=== PATIENT | male | born 1970 | race Caucasian/White ===

== ENCOUNTER → 2018-01-20 14:25 | Outpatient (CLI) | payer OTHER, SELFPAY ==
--- NOTE | 2018-01-20 14:33 | CA_ITS ---
PROCEDURE: 2-D M-mode and color Doppler study INDICATIONS FOR THE TEST: Chest pain COPD Heart Murmur Tobacco Smoking+ Palpitations Fatigue Syncope Edema Hypertension+Diabetes Mellitus+ Rheumatic Fever SOB VANN Obesity Hyperlipidemia+ Family History HD Additional History STENTS, CAD PATIENT INFORMATION HEIGHT: 69 WEIGHT:184 GENDER: Male B/P:130/71 2-D/M-MODE INTERPRETATION: 2-D MEASUREMENTS OBSERVED VALUES IN CMS Right Ventricular Dimension (RVDd) 2.4 Interventricular Septum (Thickness)(IVsd) 1.4 Left Ventricular Internal Dimensions(LVIDd) 4.7 Left Ventricular Posterior Wall (Thickness)(LVPWd) 0.9 Aortic Root 2.7 Aortic Cusp Separation 1.5 Left Atrial Dimensions (LAD) 4.2 2D 1. Left atrium is mildly enlarged, left ventricle is normal size, mild concentric left ventricular hypertrophy, visually estimated ejection fraction 55% with no obvious regional wall motion abnormality. 2. The right atrium and right ventricle are normal size and contractility. 3. The aortic valve is minimally thickened and fibrosed there is restriction the leaflet mobility. 4. The mitral and tricuspid valve leaflets are minimally thickened. 5. The pulmonic valve is poorly visualized. 6. No significant pericardial effusion noted. DOPPLER INTERROGATION: Doppler interrogation of the aortic, mitral and tricuspid valvular presence of mild mitral and tricuspid regurgitation, tricuspid regurgitant jet velocity is insufficient for calculation of the right ventricular systolic pressure, mean gradient across aortic valve is 16 mmHg, represents mild aortic stenosis, there is no significant aortic insufficiency present. Diastolic parameters are inconclusive. CONCLUSION: 1. Mildly enlarged left atrium, normal left ventricular size, mild concentric left ventricular hypertrophy, visually estimated ejection fraction 55% with no obvious regional wall motion abnormality, diastolic parameters are inconclusive. 2. Thickened and calcified aortic valve mean gradient across valve of 16 mmHg represents mild aortic stenosis, there is no aortic insufficiency. 3. Mild mitral and tricuspid regurgitation 4. No significant pericardial effusion noted.
--- NOTE | 2018-01-20 14:33 | CI_ITS ---
Cerebrovascular Exam Indications: 785.9 Bruit. 433.10 Occlusion/stenosis of carotid artery without cerebral infarction. IMPRESSIONS 1. The bilateral vertebral arteries are patent with normal antegrade flow. 2. Study suggests 50-69% stenosis involving the right internal carotid artery. 3. Study suggests 70-99% stenosis involving the left internal carotid artery. Disease progression from the study of 26-Nov-2014. History: Coronary artery disease. Risk factors: Current tobacco use. Hypertension. Diabetes mellitus. Hyperlipidemia. Carotid duplex study. Complete study and Doppler flow study including spectral analysis, color and flanagan scale imaging. Height: Height: 175.3cm. Height: 69in. Weight: Weight: 83.5kg. Weight: 183.6lb. Body mass index: BMI: 27.2kg/m^2. Body surface area: BSA: 2.03m^2. Location: Vascular laboratory. Patient status: Outpatient. CRITICAL FINDINGS - Reported to: [facility] - Read back and verified. - 01/20/18 - 1516 - 70-99% FINDING Tables: Arterial flow: + +--------+--------+ Location V sys V ed + +--------+--------+ Right CCA - proximal 99.8cm/s 28.3cm/s + +--------+--------+ Right CCA - distal 86.4cm/s 18.9cm/s + +--------+--------+ Right ECA 299cm/s -------- + +--------+--------+ Right ICA - proximal 99.8cm/s 34.6cm/s + +--------+--------+ Right ICA - mid 142cm/s 61.3cm/s + +--------+--------+ Right ICA - distal 142cm/s 57.4cm/s + +--------+--------+ Right vertebral 89.3cm/s -------- + +--------+--------+ Left CCA - proximal 116cm/s 35.2cm/s + +--------+--------+ Left CCA - distal 107cm/s 30.2cm/s + +--------+--------+ Left ECA 259cm/s -------- + +--------+--------+ Left ICA - proximal 393cm/s 177cm/s + +--------+--------+ Left ICA - mid 340cm/s 124cm/s + +--------+--------+ Left ICA - distal 129cm/s 46.3cm/s + +--------+--------+ Left vertebral 99.6cm/s -------- + +--------+--------+ Velocity ratios: + + + + + + Right, V sys Right, V ed Left, V sys Left, V ed + + + + + + Max ICA/dist CCA 1.64 3.24 3.67 5.86 + + + + + + (Report amended ) Electronically signed by: Curt Sutherland [id number]
== END ==
PROVIDERS: Family Provider Internal Medicine; Visit Provider Family Medicine
DX: I25.10 Atherosclerotic heart disease of native coronary artery without angina pectoris (principal); I65.23 Occlusion and stenosis of bilateral carotid arteries
CPT/HCPCS: 93306; 93880

== ENCOUNTER → 2018-02-14 07:53 | Outpatient (CLI) | payer OTHER, SELFPAY ==
--- NOTE | 2018-02-14 07:56 | CT_ITS ---
CT lung screening EXAM: CT LUNG LOW DOSE WO CONTRAST HISTORY: Asymptomatic with 30 pack-year smoking history ITS.REASON: NICOTINE DEPENDENCE ORDERING PHYSICIAN: Cynthia Mg MD PATIENT AGE: 47 years COMPARISON: None TECHNIQUE: The exam was performed on a GE Light Speed [address] scanner using 2.90 mGy CTDI. A low dose helical CT CHEST was performed on a multi-detector scanner. All CT scans at the facility use one or more dose reduction, viz: automated exposure control; ma/kV adjustment per patient size (including targeted exams where dose is matched to indication; i.e. head); or iterative reconstruction technique. The LDCT was performed in a facility that meets the criteria for the screening program. Data regarding this exam was submitted to ACR which is an approved registry. The order for this exam indicates that it came as a result of a lung cancer screening counseling shard decision-making visit that included all the elements required of such a visit including smoking cessation. The radiologist interpreting this exam meets the CMS criteria for the LDCT lung cancer screening program. The exam is reported using the Lung-RADS classification scale and reported to the ACR registry. NOTE: This study was performed for the specific purposes of lung cancer screening and is not an alternative to diagnostic chest CT. RADIATION DOSE: CTDI vol(CT dose Index-volume) = 2.90mG DLP (Dose Length Product) = 108.26 mGcm FINDINGS: There is a diffuse reticulonodular pattern of the lungs. There are scattered noncalcified groundglass opacities largest of which is approximately 6 mm in the left upper lobe. 6 mm perifissural nodule is present on the left. No effusions. There are mildly prominent lymph nodes in the mediastinum measuring up to 17 x 12 mm. Calcified node is present in the precarinal region and there is a calcified granuloma in the right lower lobe. Small nodes are present in the axilla. There are coronary artery calcifications. IMPRESSION: 1. Lung RADS Category: 3, probably benign 2. Other findings: Reticulonodular pattern with groundglass opacities possibly related to smoking-related lung disease. Inflammatory or infectious process also considered. Old granulomatous disease. Coronary artery disease. Mild mediastinal adenopathy RECOMMENDATIONS: [address] without and with contrast
== END ==
PROVIDERS: Family Provider Internal Medicine; PCP Family Medicine; Visit Provider Family Medicine
DX: Z87.891 Personal history of nicotine dependence (principal); Z72.0 Tobacco use; Z12.2 Encounter for screening for malignant neoplasm of respiratory organs

== ENCOUNTER → 2021-03-13 13:16 | Outpatient (CLI) | payer OTHER, SELFPAY ==
--- NOTE | 2021-03-13 13:22 | CA_ITS ---
APPROVED REPORT Deli Clerk: Bhavana Carlos RVT Laterality: Bilateral Study Quality: Good Indications: KUMAR,S/P STENTING LT CARTOID Risk Factors Hypertension: Hyperlipidemia Smoking Surgery/Intervention Carotid Stent: left Doppler Spectral Velocity Analysis ECA (R) 201.10/14.10 cm/s ECA (L) 144.80/21.80 cm/s dICA (R) 102.70/33.10 cm/s dICA (L) 57.70/23.10 cm/s Jose De Jesus (R) 95.20/33.10 cm/s Jose De Jesus (L) 64.10/23.10 cm/s pICA (R) 79.10/21.40 cm/s pICA (L) 83.30/17.90 cm/s dCCA (R) 87.70/17.10 cm/s dCCA (L) 66.60/20.50 cm/s pCCA (R) 120.80/15.00 cm/s pCCA (L) 82.00/24.30 cm/s Vert (R) 71.70/16.70 cm/s Vert (L) 89.70/19.20 cm/s ICA/CCA 1.17 ICA/CCA 1.25 Findings Study suggests 20-49% stenosis of the right internal cartoid artery. Study suggests less than 20% stenosis of the left internal cartoid artery. Antegrade flow seen bilateral vertebral arteries. Conclusion Study suggests 20-49% stenosis of the right internal cartoid artery. Study suggests less than 20% stenosis of the left internal cartoid artery. Antegrade flow seen bilateral vertebral arteries. Electronically signed by : Curt Sutherland MD 03/13/2021 15:08:07
== END ==
PROVIDERS: PCP Family Medicine; Visit Provider Family Medicine
DX: I65.23 Occlusion and stenosis of bilateral carotid arteries (principal)
CPT/HCPCS: 93880

== ENCOUNTER 2025-01-01 13:59 | Outpatient (CLI) | payer BC, SELFPAY ==
--- NOTE | 2025-01-01 | CA_ITS ---
APPROVED REPORT EXAM: Comprehensive 2D, Doppler, and color-flow Echocardiogram Check Grader: Joanie Valdez, RCS, RVS Ht: 5 ft 9 in Wt: 172lbs BSA: 1.94 BP: 120/80 mmHg Indications: [id number], DM, HTN, HLD, EX-smoker 2D Dimensions Aortic Root 2.62 cm LA Volume 65.60 mL Left Atrium 4.46 cm LA Volume Index 33.343448 mL/m2 (M/F) 16-34 RVID Base (AP4) 3.82 cm (M/F) 2.5-4.1 EF AP4 57.00 % LVOT 2.05 cm (M/F) 1.5-2.5 GL Strain -24.1 % M-Mode Dimensions RVDd 2.31 cm (0.9-2.6) LVDd 5.10 cm (3.5-5.7) Ao Diam 2.93 cm (2.0-3.7) LVDs 3.49 cm (3.5-5.7) IVSd 0.87 cm (0.6-1.1) PWd 0.84 cm (0.6-1.1) EF (Teich) 59.20% EPSs 0.20 cm FS 31.60% EDV (Teich) 123.80 mL TAPSE 1.70 (<1.7) ESV (Teich) 50.50 mL LV Diastology E Decel Time 233 (160-240 msec) E/A Ratio 1.54 MED E' 5.9 (>= 7 cm/sec) MED A' 11.60 cm/s E'/MED E' Ratio 14.41 (<= 14) LAT E' 16.9 (>= 10 cm/sec) LAT A' 11.20 cm/s E/LAT E' Ratio 5.03 (<= 14) Aortic Valve LVOT Max 122.0 (70-110 cm/s) MANUELITO Index 0.60 cm2/m2 LVOT VTI 20.57 cm AoV Peak Ld. 284.0 (50-130 cm/s) AO Peak GR. 34.50 mmHg AO Mean GR. 15.30 (<5 mmHg) AO VTI 58.6 (18-25 cm) MANUELITO (VTI) 1.16 (2.5-4.5 cm2) Mitral Valve MV E Max Ld. 85.0 (40-130 cm/s) MV A Velocity 55.0 (40-130 cm/s) E/A Ratio 1.54 MV Decel. Time 233 (160-240 ms) Tricuspid Valve TR P. Velocity 295.00 cm/s RAP Estimate 10.00 mmHg RVSP 44.80 mmHg Left Ventricle The left ventricle is normal size. The left ventricular systolic function is normal. The left ventricular ejection fraction is within the normal range. There is increased LV wall thickness. There is normal LV segmental wall motion. The left ventricular diastolic function is normal. LVEF is 55%. Right Ventricle Right ventricle is mildly dilated. Right ventricle is mildly hypokinetic. Atria The left atrium is mildly dilated. Right atrium is mildly dilated. There is no Doppler evidence of interatrial shunt. Aortic Valve The aortic valve is mildly thickened. Mild to moderate aortic stenosis is present. MANUELITO by continuity equation is 1.5 cm???. Peak velocity 2.9 m/s. Mean AV gradient 16 mmHg. Max AV gradient 37 mmHg. Mild aortic regurgitation. Mitral Valve The mitral valve leaflets are mildly thickened. No evidence of mitral valve stenosis. Mild mitral regurgitation. Tricuspid Valve Tricuspid valve is grossly normal in structure and function. Mild tricuspid regurgitation. RVSP is 30-35 mmHg. Pulmonic Valve The pulmonary valve is normal in structure. Trace pulmonic regurgitation. Great Vessels The aortic root is normal in size. IVC is normal in size and collapses >50% with inspiration. Pericardium There is no pericardial effusion. Other Information Study Quality: Fair Conclusion Normal LV systolic function. Mild RV dilation with mild reduction in RV function. Mild biatrial dilation. Mild to moderate (MANUELITO by continuity equation is 1.5 cm???. Peak velocity 2.9 m/s. Mean AV gradient 16 mmHg. Max AV gradient 37 mmHg). Mild AI, mild MR, mild TR. Electronically signed by : Merissa Galarza MD 01/01/2025 20:55:46
--- NOTE | 2025-01-01 14:51 | CT_ITS ---
FINAL REPORT TECHNIQUE: Thin section axial images were obtained from the lung apices to the upper abdomen by computed tomography. Reformatted images were obtained and reviewed. This study was performed with techniques to keep radiation doses al low as reasonably achievable (ALARA). Individualized dose reduction techniques using automated exposure control or adjustment of mA and/or kV according to the patient's size were employed. CLINICAL HISTORY: former smoker, quit 6 years ago, 1.5 ppd hx CAD COMPARISON: None FINDINGS: CHEST CT LOW DOSE 54-year-old male, quit smoking 6 years ago, approximately 50% pack-year history CTDI vol (mGy): 2.90 DLP (mGy-cm): 96.38 There is no axillary adenopathy. There is no mediastinal or hilar mass or adenopathy. The heart is normal in size. There is no pericardial or pleural effusion. Lung window images demonstrate a nodule in the left major fissure, measuring 4 mm in size, and best seen on image #38 of series 4. No other focal nodules are identified. Limited images of the upper abdomen are unremarkable. IMPRESSION: Lung-RADS category 2. Recommend 12 month follow up low dose chest CT. Reviewed, Interpreted and Dictated by Shaun Olvera MD Transcribed by Neela Joyce Authenticated and [facility]
== END 2025-01-01 23:59 | disposition home or self-care (01) ==
LOC: RT 14:00
PROVIDERS: PCP Family Medicine; Visit Provider Family Medicine
DX: I51.7 Cardiomegaly (principal); F17.201 Nicotine dependence, unspecified, in remission
CPT/HCPCS: 71271; 93306

== ENCOUNTER 2025-07-11 10:47 | Day surgery (SDC) | payer BC, SELFPAY ==
[2025-07-05 16:13] VITALS: BMI 26.6
--- NOTE | 2025-07-10 07:23 | EXP.HP ---
History of Present Illness *Admission Date: 07/11/25 *History of present illness: Mr. Baer is a 55-year-old gentleman who is here for screening colonoscopy secondary to a positive Cologuard test. The examination is deemed medically necessary for screening colonoscopy. The patient has been seen, interviewed and examined prior to the procedure by both myself and the anesthesia provider. [facility] Disclaimer: The information contained in this section may have been updated after the patient was seen, as this information can be updated by other users. Medical History HTN (hypertension) Diabetes mellitus Surgical History History of surgical removal of meniscus of knee History of quadruple bypass Family History Brother Family history of myocardial infarction Social History (Updated 07/11/25 @ 11:09 by Krysten Puentes RN) Smoking Status: Former smoker alcohol intake: former current occupational status: employed Travel in the last 8 weeks?: Inside the [place] Review of Systems Review of Systems Review of systems (narrative): Negative *Cardiovascular Comments: Negative *Gastrointestinal Comments: Negative *Genitourinary Comments: Negative *Musculoskeletal Comments: Negative *Neurologic Comments: Negative Meds Home Medications and Allergies Home Medications ?Medication ?Instructions ?Recorded ?Confirmed ?Type sodium,potassium,mag sulfates 17.5 See Rx Instructions PO .COMPLEX 06/27/25 Rx gram-3.13 gram-1.6 gram oral soln #354 mL (Suprep Bowel Prep Kit) atorvastatin 80 mg tablet 80 mg PO DAILY 07/11/25 07/11/25 History clopidogrel 75 mg tablet 75 mg PO DAILY 07/11/25 07/11/25 History coenzyme H10-ykljtkd E 100 mg-100 100 cap PO DAILY 07/11/25 07/11/25 History unit capsule famotidine 20 mg tablet (Pepcid) 20 mg PO DAILY 07/11/25 07/11/25 History glipizide 10 mg tablet, extended 10 mg PO DAILY 07/11/25 07/11/25 History release 24 hr lisinopril 5 mg tablet 5 mg PO DAILY 07/11/25 07/11/25 History metformin 500 mg tablet 500 mg PO TID 07/11/25 07/11/25 History metoprolol succinate 25 mg 12.5 mg PO DAILY 07/11/25 07/11/25 History tablet,extended release 24 hr New Prescriptions to Start Prescriptions: Allergies Allergy/AdvReac Type Severity Reaction Status Date / Time NO KNOWN ALLERGIES Allergy Uncoded 08/30/17 14:50 Exam *Routine HEENT Exam Head: Present normocephalic Eye: Present EOMI and PERRL ENT: Present mucous membranes moist *Routine Neck Exam Neck: Present supple *Routine Respiratory Exam Respiratory: Present CTA bilaterally *Routine Cardiovascular Exam Cardiovascular: Present RRR *Routine Abdominal Exam Abdominal: Present soft and normoactive bowel sounds; Absent tenderness *Routine Rectal Exam Rectal:: deferred *Routine Genitalia Exam Genitalia:: deferred *Routine Extremities Exam Extremities: Absent cyanosis, clubbing or edema *Routine Skin Exam Skin: Present warm; Absent rash *Routine Neurological Exam Neurological: Present alert and oriented X3 Assessment and Plan *Assessment and plan (1) Positive colorectal cancer screening using Cologuard test: Status: Acute Category: Medical Code(s): R19.5 - Other fecal abnormalities (2) Screening for colon cancer: Status: Acute Category: Medical Code(s): Z12.11 - Encounter for screening for malignant neoplasm of colon Plan A/P: 1. Positive Cologuard test/screening for colon cancer is the preprocedural diagnosis. The patient will be anesthetized/sedated using MAC sedation. The patient has been seen and examined. Cardiac and lung assessment prior to the examination is stable. Proceed with planned screening colonoscopy.
--- NOTE | 2025-07-11 07:01 | P.PCN_ITS ---
[facility] Procedure Note Date: 07/11/25 Time: 12:53 Procedure Note:: Colonoscopy Procedure Report: Colonoscopy with cold snare polypectomy and Endo Clip placement Endoscopist: Vinh Velasquez II, MD Referring physician: Kit Mg MD Date of Procedure: July 11, 2025 Equipment: [employer]enyo [id number] adult colonoscope Sedation: MAC sedation Indication: Mr. Baer is a 55-year-old gentleman who is here for initial screening colonoscopy secondary to a positive Cologuard test. The patient reports no abdominal pain, weight loss or change in bowel habits. He does note occasional spotting of blood on the tissue from hemorrhoids. He does state that his paternal grandfather may have had colon cancer at an older age. The examination is deemed medically necessary for screening colonoscopy Procedure: Prior to the procedure, a history and physical exam was performed, and patient's medications and allergies were reviewed. The risks, benefits and alternatives of the sedation and procedure were discussed with the patient. All questions were answered and informed consent was obtained. The patient was brought to the procedure room. Patient identification and proposed procedure were verified by the physician and the nurse. The patient was placed in a left lateral decubitus position and the scope was passed under direct vision. Throughout the procedure, the patient's blood pressure, pulse, and oxygen saturations were monitored continuously. The colonoscopy was accomplished without difficulty. The patient tolerated the procedure well. Findings: On digital rectal examination there was normal rectal tone. There were no external hemorrhoids. The prostate was 2+, smooth, soft, symmetric without nodules. The colonoscope was introduced through the anal canal to the rectum and advanced to the cecum. The ileocecal valve and appendiceal orifice were identified. The scope was advanced a short distance into the ileum which appeared grossly normal. The scope was then withdrawn into the colon. The cecum, ascending and transverse colon and mucosa were grossly normal. There were scattered diverticuli throughout the colon but more predominantly in the descending and sigmoid colon (LEFT colon). There was a single 8 to 9 mm polyp in the rectosigmoid removed via cold snare polypectomy. There was minor heme at the polypectomy site and this was closed with a single Endo Clip to provide hemostasis. The rectum itself was normal. Upon retroflexion within the rectum there were grade 2 internal hemorrhoids. The preparation was excellent throughout with [place] Preparation Score of 9. The cecal time was 14 minutes. Impression: 1. Rectosigmoid colon polyp (8 to 9 mm) 2. Pandiverticulosis 3. Grade 2 internal hemorrhoids Plan: I will follow-up the polyp histology and recommend repeat screening/surveillance colonoscopy again in 5 years. I would encourage psyllium bulking fiber supplementation on a long-term daily maintenance basis.
[2025-07-11 11:07] VITALS: BP 156/81; PULSE 65; RESP 16; TEMP 36.1; O2SAT 97; BMI 26.6
[2025-07-11 11:28] LABS: POC Glucose,Bedside 359 gm/dL (70-110)
[2025-07-11 12:55] VITALS: BP 81/50; PULSE 65; RESP 17; TEMP 36.3; O2SAT 93
[2025-07-11 13:05] VITALS: BP 77/56; PULSE 61; RESP 17; TEMP 36.3; O2SAT 93
[2025-07-11 13:15] VITALS: BP 103/67; PULSE 61; RESP 17; TEMP 36.3; O2SAT 96
[2025-07-11 13:25] VITALS: BP 143/73; PULSE 60; RESP 18; TEMP 36.3; O2SAT 95
== END 2025-07-11 13:37 | disposition home or self-care (01) ==
PROVIDERS: PCP Family Medicine; Visit Provider Internal Medicine Gastroenterology
PROC: 0DJD8ZZ Inspection of Lower Intestinal Tract, Via Natural or Artificial Opening Endoscopic (ICD-10-PCS; CPT 45378; principal; 2025-07-11 12:30)
DX: Z12.11 Encounter for screening for malignant neoplasm of colon (principal); D12.7 Benign neoplasm of rectosigmoid junction; K57.30 Diverticulosis of large intestine without perforation or abscess without bleeding; K64.1 Second degree hemorrhoids; I10 Essential (primary) hypertension; E11.9 Type 2 diabetes mellitus without complications; Z79.84 Long term (current) use of oral hypoglycemic drugs; Z80.0 Family history of malignant neoplasm of digestive organs; Z87.891 Personal history of nicotine dependence
CPT/HCPCS: 45385; 82962; J2003; J2704